=== PATIENT | female | born 1995 | race African-American/Black ===

== ENCOUNTER 2019-07-06 15:21 | Emergency (ER) | payer OTHER ==
[2019-07-06 15:28] VITALS: BP 138/84
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
== END 2019-07-06 17:04 | disposition home or self-care (01) ==
LOC: ED 15:21
DX: O26.892 Other specified pregnancy related conditions, second trimester (principal); R10.9 Unspecified abdominal pain; V49.49XA Driver injured in collision with other motor vehicles in traffic accident, initial encounter; Y93.89 Activity, other specified; Y92.410 Unspecified street and highway as the place of occurrence of the external cause; Y99.8 Other external cause status
CPT/HCPCS: 76805